=== PATIENT | female | born 1995 | race Caucasian/White ===

== ENCOUNTER 2023-09-16 15:38 | Emergency (ER) | payer BC, SELFPAY ==
--- OUTSIDE RECORDS SUMMARY | 2023-09-16 15:43 | XMS_ITS | Patient Health Record ---
Author Name Unknown Organization [facility] Address [address] [place] [address] Care Team Providers Care Inventory Analyst Name Role Phone Radha Shahid Unavailable [phone] ALLERGIES Allergen (clinical drug ingredient) Drug/Non Drug Allergy documented on EMR Reaction Allergy Type Onset Date Status sulfamethoxazole / trimethoprim Bactrim hives Drug Allergy Active azithromycin Azithromycin hives Drug Allergy A ctive RESULTS Component Value Reference Range Notes Urine Dip Reviewed date:03/17/2023 11:58:56 AM Interpretation: Performing Lab: Notes/Report: Appearance light yellow Color - Color Leukocytes + Negative - Large +++ Nitrates neg Negative - Positive Urobilinogen 0.2 Negative - 8 Protein neg Negative - 2000++++ PH 7.0 5.0 - 8.5 Blood neg Negative - Large +++ Specific [place] 1.010 1.000 - 1.030 [place] neg Negative - Large Bilirubin neg Negative - Large Glucose neg Negative - 2000+ Reviewed date:03/17/2023 11:58:56 AM Interpretation: Performing Lab: Notes/Report: Result negative Negative - Positive REASON FOR REFERRAL No Information SOCIAL HISTORY Tobacco Use: 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 Observation Description Date Details (start date - stop date) Never Smoker NA - NA Sex Assigned At :
[2023-09-16 15:50] VITALS: BP 123/78; PULSE 89; RESP 18; TEMP 36.9; O2SAT 100; BMI 33.5
[2023-09-16 16:05] LABS: UTC Strep Screen (Rapid) Negative (Negative)
--- NOTE | 2023-09-16 16:17 | EXP.UTC ---
Discharge Plan Disposition Patient Disposition: Home, Self-Care Condition: Good Prescriptions Prescriptions: New cephalexin [cephalexin] 500 mg tablet 500 mg PO BID 10 Days Qty: 20 0RF fluticasone propionate [fluticasone propionate] 50 mcg/actuation spray,suspension 1 spray intranasal DAILY Qty: 9.9 0RF Referrals Follow up/Referrals: Provider,Referral, MD [Primary Care Provider] - See instructions Activity Restrictions/Add. Instructions Additional Instructions/Restrictions: Start antibiotic patient to take as ordered for a full length of time even if you feel better. Sinus infections do not get better overnight. It may take 2-3 days to notice much improvement so be sure to use conservative measures as discussed for symptoms. Flonase 1 spray each nostril daily to help with nasal congestion, sinus and ear pressure/information Increase fluids Humidifier/vaporizer as needed Tylenol and ibuprofen as needed for fever or pain. If symptoms do not improve or get worse return or be seen in the ER Follow-up with primary care this week Clinical Impressions Clinical Impression: Sinusitis Qualifiers: Sinusitis location: maxillary Chronicity: acute Recurrence: non-recurrent Qualified Code(s): J01.00 - Acute maxillary sinusitis, unspecified Instructions Patient Instructions: DI for Sinusitis Discharge ED Provider: Daryl ([facility])Nitza [facility] General Stated complaint: sore throat, bilateral ear pain Mode of Arrival: Ambulatory Source of Information: Patient Limitations: No Limitations Time Seen by Provider: 09/16/23 16:17 Description of Symptoms (Recalled from Triage Doc. by RN): cough, sore throat, itchy throat, congestion, and bilateral ear pain. HEENT Symptoms (Recalled from RN notes): Yes Resp Symptoms (Recalled from RN notes): No Skin Symptoms (Recalled from RN notes): No MS Symptoms (Recalled from RN notes): No Functional Status (Recalled from RN notes): n/a History of Present Illness Provider Complaint: 27 yr old female presents for cough, sore throat, itchy throat, green nasal drainage, sinus tenderness,congestion, and bilateral ear pain. Related Data Previous Rx's Medication Instructions Recorded cephalexin 500 mg tablet 500 mg PO BID 10 days #20 tabs 09/16/23 fluticasone propionate 50 1 spray intranasal DAILY #9.9 mL 09/16/23 mcg/actuation nasal spray,suspension Allergies Allergy/AdvReac Type Severity Reaction Status Date / Time azithromycin Allergy Verified 09/16/23 15:59 sulfamethoxazole Allergy Verified 09/16/23 15:59 [From Bactrim] trimethoprim [From Bactrim] Allergy Verified 09/16/23 15:59 Worker's Comp Is this a Worker's Comp case?: No [facility] Disclaimer: The information contained in this section may have been updated after the patient was seen, as this information can be updated by other users. 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) Smoking Status: Smoker, status unknown alcohol intake: never current occupational status: employed Travel in the last 8 weeks: None ROS Obtained: Yes All systems reviewed & no additional complaints except as documented Constitutional Constitutional: Reports system reviewed and no additional complaints, except as documented and Reports as per HPI Eyes Eyes: Reports system reviewed and no additional complaints, except as documented ENT Ears, Nose, Mouth, and Throat: Reports system reviewed and no additional complaints, except as documented, Reports as per HPI, Reports otalgia, Reports nasal congestion, Reports nasal discharge, Reports sinus pain, Reports sinus pressure and Reports sore throat Cardiovascular Cardiovascular: Reports system reviewed and no additional complaints, except as documented Respiratory Respiratory: Reports system reviewed and no additional complaints, except as documented, Reports as per HPI and Reports cough Gastrointestinal Gastrointestingal: Reports system reviewe
[2023-09-16 16:30] VITALS: BP 124/86; PULSE 79; RESP 19; TEMP 36.8; O2SAT 99
== END 2023-09-16 16:31 | disposition home or self-care (01) ==
PROVIDERS: Emergency Provider Nurse Practitioner Family
DX: J01.00 Acute maxillary sinusitis, unspecified (principal); R07.0 Pain in throat; H92.03 Otalgia, bilateral; R05.9 Cough, unspecified; R09.81 Nasal congestion; F17.210 Nicotine dependence, cigarettes, uncomplicated
CPT/HCPCS: 87880; 99204; 99212; G0463

== ENCOUNTER 2024-01-11 20:27 | Emergency (ER) | payer BC, SELFPAY ==
[2024-01-11 20:27] VITALS: BP 119/83; PULSE 74; RESP 19; TEMP 36.4; O2SAT 99; BMI 28.1
--- NOTE | 2024-01-11 20:31 | ECG_ITS ---
APPROVED REPORT Exam: Resting ECG HR:63 bpm ECG Measurements Heart Rate 63 AXES MN 120 P 40 QRSd 87 QRS 79 QT 392 T 20 QTc 399 Conclusion SINUS RHYTHM NORMAL ECG UNCONFIRMED REPORT Electronically signed by : Raciel Leggett, 01/11/2024 23:38:47
--- NOTE | 2024-01-11 20:43 | XR_ITS ---
PROCEDURE INFORMATION: Exam: XR Chest Exam date and time: 01/11/2024 8:42 PM Age: 28 years old Clinical indication: Pain; Chest pressure; Additional info: Chest pain TECHNIQUE: Imaging protocol: Radiologic exam of the chest. Views: 2 views. COMPARISON: No relevant prior studies available. FINDINGS: Lungs: Unremarkable. No consolidation. Pleural spaces: Unremarkable. No pleural effusion. No pneumothorax. Heart/Mediastinum: Unremarkable. No cardiomegaly. Bones/joints: Unremarkable. IMPRESSION: No acute findings.
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
[2024-01-11] MEDS: ACETAMINOPHEN 325MG TAB 650 MG PO (21:00)
[2024-01-11 21:26] VITALS: BP 128/80; PULSE 76; RESP 20; TEMP 36.4; O2SAT 98
== END 2024-01-11 21:26 | disposition home or self-care (01) ==
PROVIDERS: Emergency Provider Student in an Organized Health Care Education/Training Program
DX: R07.89 Other chest pain (principal); R11.0 Nausea; M54.9 Dorsalgia, unspecified; R06.02 Shortness of breath; R05.9 Cough, unspecified
CPT/HCPCS: 71046; 93005; 99284

== ENCOUNTER 2024-03-07 09:55 | Outpatient (CLI) | payer BC, SELFPAY ==
--- NOTE | 2024-03-07 09:58 | CT_ITS ---
FINAL REPORT CLINICAL HISTORY: ABD PAIN, CONSTIPATION COMPARISON: None FINDINGS: CT OF THE ABDOMEN AND PELVIS WITH CONTRAST Axial CT images of the abdomen and pelvis were obtained after the administration of IV contrast. Coronal and sagittal reformatted images were also obtained and reviewed. This study was performed with techniques to keep radiation doses as low as reasonably achievable (ALARA). Individualized dose reduction techniques using automated exposure control or adjustment of mA and/or kV according to the patient's size were employed. Abdomen: The lung bases are clear. The heart is normal in size. The liver has an unremarkable appearance, without evidence of mass or biliary ductal dilatation. The gallbladder has been surgically resected. The spleen is unremarkable. No adrenal mass is present. The pancreas has an unremarkable appearance. There is a 1 cm left renal cyst identified. The aorta is normal in caliber. There is no free fluid or adenopathy. No mass or abnormal fluid collection is seen. Pelvis: The appendix is normal in appearance. There is a moderate amount of stool present throughout the colon. The urinary bladder is unremarkable. There is a small amount of pelvic free fluid, physiologic or reactive. There is no evidence of mass or adenopathy. There is no evidence of bowel obstruction. IMPRESSION: 1 cm left renal cyst. Moderate stool throughout the colon. Small amount of pelvic free fluid, physiologic or reactive. Reviewed, Interpreted and Dictated by Donell Whitt III, MD Transcribed by Savanah Suazo Authenticated and [facility]
[2024-03-07] MEDS: IOPAMIDOL-370 (76%);100ML BOTTLE 75 ML IV (10:54)
[2024-03-07] MEDS: SODIUM CHLORIDE 0.9% 10ML SYR (RAD ONLY) 10 ML IV (10:54)
== END 2024-03-07 23:59 | disposition home or self-care (01) ==
LOC: RAD 09:56
PROVIDERS: PCP Nurse Practitioner; Visit Provider Nurse Practitioner
DX: K59.00 Constipation, unspecified (principal); R10.9 Unspecified abdominal pain
CPT/HCPCS: 74177; Q9967

== ENCOUNTER 2024-06-17 07:18 | Outpatient (CLI) | payer BC, SELFPAY ==
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
[2024-06-17] MEDS: SODIUM CHLORIDE 0.9% 10ML SYR (RAD ONLY) 10 ML IV (08:03)
[2024-06-17] MEDS: GADOTERIDOL INJ 20ML SYRINGE 17 ML IV (08:03)
== END 2024-06-17 23:59 | disposition home or self-care (01) ==
LOC: RAD 07:19
PROVIDERS: PCP Nurse Practitioner; Visit Provider Nurse Practitioner
DX: G43.511 Persistent migraine aura without cerebral infarction, intractable, with status migrainosus (principal)
CPT/HCPCS: 70553; A9576

== ENCOUNTER 2025-05-26 13:27 | Outpatient (CLI) | payer BC, MEDICAID, SELFPAY ==
--- OUTSIDE RECORDS SUMMARY | 2025-05-29 13:38 | XMS_ITS | Data Portability ---
Author Organization [facility] Caryl & TODD Wolf ADMIN Address [address] [place] [id number] Care Team Providers Care Mainframe Software Developer Name Role Phone BRIAN BIA Fertilizer Loader ALESSIA DO Primary Care Provider [phone] Assessment No assessment recorded. Plan of Treatment Reminders Order Date Submit Date Provider Last Modified By Organization Details Last Modified Time Details Appointments FOLLOW UP 15 2024 09:00A Sang Delvalle MD Not available Not available Not available Lab CBC w/ diff 2023 024 [email or web address] Not available 11/30/2023 08:19:19 CMP, serum or plasma 2023 024 SHARI Not available 11/23/2023 14:19:12 ldh, serum or plasma 2023 024 SHARI Not available 11/23/2023 14:02:29 platelet Ab, serum 2023 024 [email or web address] Not available 11/30/2023 08:19:20 vitamin D, 25-hydrox y, total, serum 2023 024 [email or web address] Not available 11/30/2023 08:19:20 vitamin B12 + folate, serum or blood 2023 024 [email or web address] Not available 11/30/2023 08:19:20 TSH + free T4, serum 2023 024 [email or web address] Not available 11/30/2023 08:19:20 mma (methylma lonic acid), serum 2023 024 [email or web address] Not available 11/30/2023 08:19:20 iron + TIBC + ferritin, serum 2023 024 [email or web address] Not available 11/30/2023 08:19:20 iron saturatio n, serum 2023 024 [email or web address] Not available 11/30/2023 08:19:20 Referral None recorded. Procedures None recorded. Surgeries None recorded. Imaging MRI, brain, w/o contrast 2023 [facility] (Centralized Scheduling), [address], [place], [address], 05/17/2024 15:10:40 Medication Orders Ubrelvy 100 mg tablet 2023 [facility], [address] [place] [address], [address], [place], [address], 05/17/2024 15:11:34 Patient TargetsNo targets recorded. Patient InstructionsNo instructions recorded. Reason for Referral None Reported. Results Created Date Observation Date Name Description Value Unit Range Abnormal Flag Note LastModifiedBy Organization Detail LastModifiedTime 11/23/19 24 11/23/2023 CBC AUTO W DIFF WBC 4.5 K/uL 4.0-10 .5 Not Available [facility] ([facility]) [address], [place], [address], 11/23/2023 13:15:41 11/23/19 24 11/23/2023 CBC AUTO W DIFF RBC 4.7 M/mm3 4.2-6. 4 Not Available [facility] ([facility]) [address], [place], [address], 11/23/2023 13:15:41 11/23/19 24 11/23/2023 CBC AUTO W DIFF HGB 13.7 gm/dL 12.5-1 6.0 Not Available [facility] ([facility]) [address], [place], [address], 11/23/2023 13:15:41 11/23/19 24 11/23/2023 CBC AUTO W DIFF HCT 41.3 % 37.0-4 7.0 Not Available [facility] ([facility]) [address] , [place], [address], 11/23/2023 13:15:41 11/23/19 24 11/23/2023 CBC AUTO W DIFF MCV 88.4 fL 78-100 Not Available [facility] ([facility]) [address] , [place], [address], 11/23/2023 13:15:41 11/23/19 24 11/23/2023 CBC AUTO W DIFF MCH 29.3 pg 27-31 Not Available [facility] ([facility]) [address], [place], [address], 11/23/2023 13:15:41 11/23/19 24 11/23/2023 CBC AUTO W DIFF MCHC 33.2 g/dL 32-36 Not Available [facility] ([facility]) [address] , [place], [address], 11/23/2023 13:15:41 11/23/19 24 11/23/2023 CBC AUTO W DIFF RDW 11.9 % 11.5-1 4.0 Not Available [facility] ([facility]) [address] , [place], [address], 11/23/2023 13:15:41 11/23/19 24 11/23/2023 CBC AUTO W DIFF platelet count 230 K/uL 150-45 0 Not Available [facility] ([facility]) [address] [place], [address], 11/23/2023 13:15:41 11/23/19 24 11/23/2023 CBC AUTO W DIFF MPV 11.4 fL 6-9.5 high Not Available [facility] ([facility]) [address], [place], [address], 11/23/2023 13:15:41 11/23/19 24 11/23/2023 CBC AUTO W DIFF neutrophil% 41.9 % 43-65 low Not Available [facility] ([facility]) [address], [place], [address], 11/23/2023 13:15:41 11/23/19 24 11/23/2023 CBC AUTO W DIFF lymphocyte% 47.1 % 20.5-4 5.5 high Not Available [facility] ([facility]) [address], [place], [address], 11/23/2023 13:15:41 11/23/19 24 11/23/2023 CBC AUTO W DIFF monocyte% 9.5 % 5.5-11 .7 Not Available [facility] ([facility]) [address], [place], [address], 11/23/2023 13:15:41 11/23/19 24 11/23/2023 CBC AUTO W DIFF eosinophil% 1.1 % 0.9-2. 9 Not Available [facility] ([facility]) [address], [place], [address], 11/23/2023 13:15:41 11/23/19 24 11/23/2023 CBC AUTO W DIFF basophil% 0.4 % 0.2-1. 0 Not Available [facility] ([facility]) [address], [place], [address], 11/23/2023 13:15:41 11/23/19 24 11/23/2023 CBC AUTO W DIFF immature granulocytes % 0.0 % 0.0-0. 8 Not Available [facility] ([facility]) [address], [place], [address], 11/23/2023 13:15:41 11/23/19 24 11/23/2023 CBC AUTO W DIFF nucleated red blood cells % 0.0 % Not Available [facility] ([facility]) [address], [place], [address], 11/23/2023 13:15:41 11/23/19 24 11/23/2023 CBC AUTO W DIFF neutrophil# 1.9 K/uL 2.2-4. 8 low Not Available [facility] ([facility]) [address], [place], [address], 11/23/2023 13:15:41 11/23/19 24 11/23/2023 CBC AUTO W DIFF lymphocyte# 2.1 cell/ mcL 1.3-2. 9 Not Available [facility] ([facility]) [address], [place], [address], 11/23/2023 13:15:41 11/23/19 24 11/23/2023 CBC AUTO W DIFF monocyte# 0.4 cell/ mcL 0.3-0. 8 Not Available [facility] ([facility]) [address], [place], [address], 11/23/2023 13:15:41 11/23/19 24 11/23/2023 CBC AUTO W DIFF eosinophil# 0.1 cell/ mcL 0-0.2 Not Available [facility] ([facility]) [address], [place], [address], 11/23/2023 13:15:41 11/23/19 24 11/23/2023 CBC AUTO W DIFF basophil# 0.0 cell/ mcL 0.0-1. 0 Not Available [facility] ([facility]) [address], [place], [address], 11/23/2023 13:15:41 11/23/19 24 11/23/2023 CBC AUTO W DIFF immature gramulocytes # 0.00 K/uL Not Available [facility] ([facility]) [address], [place], [address], 11/23/2023 13:15:41 11/23/19 24 11/23/2023 CBC AUTO W DIFF nucleated red blood cells # 0.00 K/uL Not Available [facility] ([facility]) [address], [place], [address], 11/23/2023 13:15:41 11/23/19 24 11/23/2023 CBC AUTO W DIFF manual differential NO Not Available [facility] ([facility]) [address], [place], [address], 11/23/2023 13:15:41 11/23/19 24 11/23/2023 VITAM IN B12 vitamin B12 380 pg/mL 193-98 6 *Note : Refer irasema Her. New Test Metho d in use. Not Available [facility] ([facility]) [address] , [place], [address], 11/23/2023 13:51:32 11/23/19 24 11/23/2023 VITAM IN B12 folate (folic acid), serum 13.2 NG/mL 8.6-58 .9 *Note : Refer irasema Her. New Test Metho d in use. Not Available [facility] ([facility]) [address], [place], [address], 11/23/2023 13:51:32 11/23/19 24 11/23/2023 VITAM IN D, 25-HY DROXY vitamin D, 25-hydroxy 25.9 NG/mL 30.0-1 00.0 low Not Available [facility] ([facility]) [address] , [place], [address], 11/23/2023 14:02:28 11/23/19 24 11/23/2023 LDH (LD) LDH 165 U/L 0-190 Not Available [facility] ([facility]) [address] , [place], [address], 11/23/2023 14:02:29 11/23/19 24 11/23/2023 THYRO ID STIMU LATIN G HORMO NE thyroid stim hormone 1.92 mIU/L 0.36-3 .74 Not Available [facility] ([facility]) [address], [place], [address], 11/23/2023 14:02:31 11/23/19 24 11/23/2023 T4 FREE T4 free 0.85 NG/dL 0.76-1 .46 Not Available [facility] ([facility]) [address], [place], [address], 11/23/2023 14:03:38 11/23/19 24 11/23/2023 DIOGENES TIN ferritin, serum 46 NG/mL 3-244 Not Available [facility] ([facility]) [address], [place], [address], 11/23/2023 14:03:39 11/23/19 24 11/23/2023 COMP METAB OLIC PANEL sodium 134 mmol/ L 136-14 5 low Not Available [facility] ([facility]) [address], [place], [address], 11/23/2023 14:19:12 11/23/19 24 11/23/2023 COMP METAB OLIC PANEL potassium 3.8 mmol/ L 3.6-5. 0 Not Available [facility] ([facility]) [address] [place], [address], 11/23/2023 14:19:12 11/23/19 24 11/23/2023 COMP METAB OLIC PANEL chloride 99 mmol/ L 98-107 Not Available [facility] ([facility]) [address] [place], [address], 11/23/2023 14:19:12 11/23/19 24 11/23/2023 COMP METAB OLIC PANEL carbon dioxide 25.1 mmol/ L 21.0-3 2.0 Not Available [facility] ([facility]) [address], [place], [address], 11/23/2023 14:19:12 11/23/19 24 11/23/2023 COMP METAB OLIC PANEL anion gap 10.0 Not Available [facility] ([facility]) [address], [place], [address], 11/23/2023 14:19:12 11/23/19 24 11/23/2023 COMP METAB OLIC PANEL glucose 91 mg/dL 70-120 Not Available [facility] ([facility]) [address], [place], [address], 11/23/2023 14:19:12 11/23/19 24 11/23/2023 COMP METAB OLIC PANEL BUN 9 mg/dL 7-18 Not Available [facility] ([facility]) [address], [place], [address], 11/23/2023 14:19:12 11/23/19 24 11/23/2023 COMP METAB OLIC PANEL creatinine 0.7 mg/dL 0.6-1. 3 Not Available [facility] ([facility]) [address], [place], [address], 11/23/2023 14:19:12 11/23/19 24 11/23/2023 COMP METAB OLIC PANEL glomerular filtration rate >60 mlper min 60- Not Available [facility] ([facility]) [address], [place], [address], 11/23/2023 14:19:12 11/23/19 24 11/23/2023 COMP METAB OLIC PANEL total protein 8.0 g/dL 6.4-8. 2 Not Available [facility] ([facility]) [address], [place], [address], 11/23/2023 14:19:12 11/23/19 24 11/23/2023 COMP METAB OLIC PANEL albumin 4.1 g/dL 3.4-5. 0 Not Available [facility] ([facility]) [address] , [place], [address], 11/23/2023 14:19:12 11/23/19 24 11/23/2023 COMP METAB OLIC PANEL globulin 3.9 Not Available [facility] ([facility]) [address] , [place], [address], 11/23/2023 14:19:12 11/23/19 24 11/23/2023 COMP METAB OLIC PANEL alb/glob ratio 1.1 0.7-2 Not Available [facility] ([facility]) [address] , [place], [address], 11/23/2023 14:19:12 11/23/19 24 11/23/2023 COMP METAB OLIC PANEL calcium 9.2 mg/dL 8.5-10 .5 Not Available [facility] ([facility]) [address] , [place], [address], 11/23/2023 14:19:12 11/23/19 24 11/23/2023 COMP METAB OLIC PANEL bilirubin total 0.3 mg/dL 0.10-1 .00 Not Available [facility] ([facility]) [address] , [place], [address], 11/23/2023 14:19:12 11/23/19 24 11/23/2023 COMP METAB OLIC PANEL AST (SGOT) 17 U/L 0-37 Not Available [facility] ([facility]) [address] , [place], [address], 11/23/2023 14:19:12 11/23/19 24 11/23/2023 COMP METAB OLIC PANEL ALT (SGPT) 21 U/L 0-65 Not Available [facility] ([facility]) [address] , [place], [address], 11/23/2023 14:19:12 11/23/19 24 11/23/2023 COMP METAB OLIC PANEL alk phosphatase 104 U/L 46-116 Not Available [facility] ([facility]) [address], [place], [address], 11/23/2023 14:19:12 11/23/19 24 11/23/2023 IRON STUDY (IRON /TIBC /%SAT ) iron 94 mcg/m L 40-180 Not Available [facility] ([facility]) [address], [place], [address], 11/23/2023 14:24:44 11/23/19 24 11/23/2023 IRON STUDY (IRON /TIBC /%SAT ) TIBC 330 mcg/d L 250-45 0 Not Available [facility] ([facility]) [address], [place], [address], 11/23/2023 14:24:44 11/23/19 24 11/23/2023 IRON STUDY (IRON /TIBC /%SAT ) %sat 28 15-55 Not Available [facility] ([facility]) [address], [place], [address], 11/23/2023 14:24:44 11/23/19 24 11/27/2023 METHY LMALO TIAN ACID QUANT methylmaloni c acid, serum 169 nmol/ L 0-378 Speci men Comme nt: Test( s) 29332 7-Met hylma lonic Acid, Serum Speci men Comme nt: was devel oped and its perfo rmanc e diane cte risti cs Speci men Comme nt: deter mined by [facility]. It has not been candelario ared or appro shell Speci men Comme nt: by the Food and Drug Admin istra tion. Perfo rmed at: [facility] [place] [address] , [place] [address] Lab Direc tor: Ana georges MD, Phone : [phone] Not Available [facility] ([facility]) [address], [place], [address], 11/27/2023 17:09:42 11/23/19 24 11/30/2023 PLATE LET ANTIB NELSON, SERUM hla class 1 Ab TNP Speci men quant ity insuf ficie nt for verif icati on by repea t chaim sis. Conta ct: Huma Bashir nd Not Available [facility] ([facility]) [address], [place], [address], 11/30/2023 13:10:21 11/23/19 24 11/30/2023 PLATE LET ANTIB NELSON, SERUM iib / iiia TNP Test not perfo rmed Not Available [facility] ([facility]) [address], [place], [address], 11/30/2023 13:10:21 11/23/19 24 11/30/2023 PLATE LET ANTIB NELSON, SERUM ib / IX TNP Test not perfo rmed Not Available [facility] ([facility]) [address], [place], [address], 11/30/2023 13:10:21 11/23/19 24 11/30/2023 PLATE LET ANTIB NELSON, SERUM ia / iia TNP Test not perfo rmed Not Available [facility] ([facility]) [address], [place], [address], 11/30/2023 13:10:21 11/23/19 24 11/30/2023 PLATE LET ANTIB NELSON, SERUM glycoprotein IV antibody TNP Test not perfo rmed [facility] [place] [address] [place] [address] Lab Direc tor: Ana georges MD, Phone : [phone] Not Available [facility] ([facility]) [address], [place], [address], 11/30/2023 13:10:21 Result Notes None recorded. Problems Name Problem SNOMED Code Status Onset Date Resolution Date Notes Provider Name and Address Organization Details Recorded Time Migraine 22449124 Active 2023 Elaina dominique [facility] 4 07:44:56 Chronic intractabl e migraine without aura 7596993102289 05 Active 2023 Millicent Morales, DO [address], [place], [address] , [facility] 4 15:05:04 Problem Notes None recorded. Procedures Surgical History Date Name Laterality Status Provider Name and Address Organization Details Recorded Time 11/23/19 24 Venipuncture completed Elicia Espinoza CH[facility]gett NT [facility] 11/23/2023 10:34:25 11/02/19 24 destruction of lesion of uterus completed Elaina Moalfonso [facility] 05/17/2024 14:35:20 10/02/20 23 Date of Last Pap Smear completed Shabana BROOKS [facility] 11/23/2023 10:00:55 11/02/19 00 Tonsillectomy/Adeno idectomy completed Shabana [facility]gett [facility] 11/23/2023 10:01:08 Cholecystectomy completed Elaina Padgett [facility] 05/17/2024 14:34:52 Imaging Results None recorded. Procedure Notes None recorded. Medical Equipment None Reported. Allergies Allergen ID Allergen Name Allergen Category Reaction Reaction Severity Criticality Documentation Date Start Date Code Code System Note Provider Name and Address Organization Details Recorded Time 809273 azithromy donnie medicatio n Not available Not available Not available 05/17/2024 43413 RxNorm Elaina Moalfonso dominique [facility] - [facility] 4 07:43:22 285079 codeine medicatio n abdominal pain chest pain vomiting severe severe severe Not available 05/17/2024 2670 RxNorm Elaina dominique [facility] - [facility] 4 14:32:06 298908 Bactrim medicatio n rash vomiting severe severe Not available 05/17/2024 34953 9 RxNorm [facility] [place] [facility] 4 14:32:06 Medications Name Sig Start Date Stop Date Status Note LastModified by Organization Details LastModified Time quetiapine 25 mg tablet TAKE 1 TABLET BY MOUTH DAILY AT BEDTIME 05/17 completed Not Available Not Available Not Available cyclobenzap rine 10 mg tablet TAKE 1 TABLET BY MOUTH TWICE DAILY 05/17 completed Not Available Not Available Not Available amoxicillin 500 mg capsule TAKE 1 CAPSULE BY MOUTH THREE TIMES DAILY FOR 7 DAYS UNTIL GONE 05/17 completed Not Available Not Available Not Available venlafaxine ER 75 mg capsule,ext ended release 24 hr TAKE 1 CAPSULE BY MOUTH DAILY WITH FOOD 05/17 completed Not Available Not Available Not Available paroxetine 10 mg tablet TAKE 1 TABLET BY MOUTH DAILY IN THE MORNING active Not Available Not Available No t Available trazodone 50 mg tablet TAKE 1 TABLET BY MOUTH AT BEDTIME 05/17 completed Not Available Not Available Not Available ibuprofen 800 mg tablet TAKE 1 TABLET BY MOUTH EVERY 8 HOURS NEEDED FOR ABDOMINAL PAIN 05/17 completed Not Available Not Available Not Available hydrocodone 5 mg-acetamin ophen 325 mg tablet TAKE 1 TABLET BY MOUTH EVERY 4 HOURS NEEDED FOR PAIN 05/17 completed Not Available Not Available Not Available meloxicam 15 mg tablet TAKE 1 TABLET BY MOUTH ONCE DAILY 05/17 completed Not Available Not Available Not Available ondansetron HCl 4 mg tablet TAKE 1 TABLET BY MOUTH EVERY 6 HOURS FOR 10 DAYS NEEDED 05/17 completed Not Available Not Available Not Available phentermine 37.5 mg tablet active Not Available Not Available Not Available acetaminoph en 300 mg-codeine 30 mg tablet TAKE 1 TABLET BY MOUTH EVERY 6 HOURS FOR 7 DAYS NEEDED 05/17 completed Not Available Not Available Not Available aspirin 81 mg tablet,ankita yed release Take 1 tablet every day by oral route. 05/17 completed Not Available Not Available Not Available oxycodone-a cetaminophe n 5 mg-325 mg tablet TAKE 1 TABLET BY MOUTH EVERY 6 HOURS NEEDED FOR ABDOMINAL PAIN DISCOMFOR T 05/17 completed Not Available Not Available Not Available amoxicillin 875 mg tablet TAKE 1 TABLET BY MOUTH TWICE DAILY FOR 7 DAYS 05/17 completed Not Available Not Available Not Available methocarbam ol 750 mg tablet TAKE 1 TABLET BY MOUTH EVERY 6 HOURS 05/17 completed Not Available Not Available Not Available temazepam 15 mg capsule TAKE 1 CAPSULE BY MOUTH DAILY AT BEDTIME NEEDED 05/17 completed Not Available Not Available Not Available lidocaine HCl 4 % (40 mg/mL) mucosal solution SWISH AND SPIT 5ML THREE TIMES DAILY FOR 7 DAYS 05/17 completed Not Available Not Available Not Available hydrocodone 7.5 mg-acetamin ophen 325 mg tablet TAKE 1 TABLET BY MOUTH EVERY 6 HOURS FOR 7 DAYS NEEDED 05/17 completed Not Available Not Available Not Available cephalexin 500 mg capsule TAKE 1 CAPSULE BY MOUTH TWICE DAILY FOR 10 DAYS 11/16 completed Not Available Not Available Not Available dexamethaso ne 0.75 mg tablet 05/17 completed Not Available Not Available Not Available hydrocortis one 2.5 % topical cream APPLY TOPICALLY TO THE AFFECTED AREA TWICE DAILY FOR 5 DAYS 11/16 completed Not Available Not Available Not Available ergocalcife rol (vitamin D2) 1,250 mcg (50,000 unit) capsule TAKE 1 CAPSULE BY MOUTH EVERY WEEK DIRECTED 05/17 completed Not Available Not Available Not Available ibuprofen 600 mg tablet 05/17 completed Not Available Not Available Not Available scopolamine 1 mg over 3 days transdermal patch 05/17 completed Not Available Not Available Not Available methylpredn isolone 4 mg tablets in a dose pack FOLLOW PACKAGE DIRECTION S 11/16 completed Not Available Not Available Not Available ondansetron 4 mg disintegrat ing tablet TAKE 2 TABS BY MOUTH EVERY 6 HOURS NEEDED FOR NAUSEA. 11/16 completed Not Available Not Available Not Available cefdinir 300 mg capsule TAKE 1 CAPSULE BY MOUTH TWICE DAILY FOR 10 DAYS 05/17 completed Not Available Not Available Not Available fluticasone propionate 50 mcg/actuati on nasal spray,suspe nsion USE 1 SPRAY(S) IN EACH NOSTRIL ONCE DAILY 05/17 completed Not Available Not Available Not Available bupropion HCl XL 300 mg 24 hr tablet, extended release TAKE 1 TABLET BY MOUTH ONCE DAILY 05/17 completed Not Available Not Available Not Available nitrofurant oin monohydrate /macrocryst als 100 mg capsule TAKE 1 CAPSULE BY MOUTH EVERY 12 HOURS WITH FOOD FOR 7 DAYS 05/17 completed Not Available Not Available Not Available chlorhexidi ne gluconate 0.12 % mouthwash SWISH 1/2 OUNCE BY MOUTH TWICE A DAY FOR 30 SECONDS THEN SPIT 05/17 completed Not Available Not Available Not Available quetiapine ER 150 mg tablet,exte nded release 24 hr TAKE 1 TABLET BY MOUTH DAILY IN THE EVENING 05/17 completed Not Available Not Available Not Available Ubrelvy 100 mg tablet 1 tablet at onset of a headache. May repeat the dose in 2 hours if needed. no more than 2 doses in 24 hours active Not Available Not Available No t Available Qulipta 60 mg tablet Take 1 tablet every day by oral route. active Not Available Not Available No t Available Vitals Date Recorded Body height Body mass index (BMI) Body weight Body temperature Heart rate Oxygen saturation Oxygen saturation in Arterial blood by Pulse oximetry Systolic And Diastolic Provider Name and Address Organization Details Last Updated DateTime 170.18 cm 32.8 kg/m2 18872.2 4 g 98.7 [degF] 72 /min 99 % 99 % 120/72 mm[Hg] Shabana Neal [facility] 10:03:59 Date Recorded Body height Body mass index (BMI) Body weight Heart rate Systolic And Diastolic Provider Name and Address Organization Details Last Updated DateTime 05/17/2024 170.18 cm 31.2 kg/m2 94298.06 g 71 /min 109/73 mm[Hg] Elaina Lulú GOLDEN [facility] 05/17/2024 14:33:49 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 Question Answer Notes LastModified by Organizat ion Details LastModified Time Tobacco Smoking Status Never Smoker Shabana Neal [facility] dominique [facility] 11/23/2023 10:01:06 Do You Have An Advance Directive? No [email or web address] Information not available 11/23/2023 Are You Blind Or Do You Have Difficulty Seeing? Yes Information not available 11/23/2023 What Is Your Level Of Caffeine Consumption? None Information not available 05/17/2024 What Is Your Relationship Status? Lives In A House With And Kids Information not available 05/17/2024 Are You Sexually Active? Yes Information not available 05/17/2024 Are You Passively Exposed To Smoke? No [email or web address] Information not available 11/23/2023 How Much Tobacco Do You Smoke? No [email or web address] Information not available 11/23/2023 Are You Currently In School? No Some College Information not available 05/17/2024 Sex: Unknown Functional Status Question Answer Note LastModified by Organizat ion Details LastModified Time Do you use any illicit or recreational drugs? No [email or web address] Information not available 11/23/2023 Are you currently employed? Yes Information not available 05/17/2024 What is your occupation? [employer] Information not available 05/17/2024 What is your exercise level? Moderate [email or web address] Information not available 11/23/2023 Mental Status Question Answer Note LastModified by Organization D etails LastModified Time Do you feel stressed (tense, restless, nervous, or anxious, or unable to sleep at night)? [id number] [email or web address] Information not available 11/23/2023 Family History Relationship Description Onset Age of this Age Resolved Age Notes LastModified by Organization Details LastModified Time Father No current problems or disability ldalla Not available 05/17 14:33:24 Mother No current problems or disability ldalla Not available 05/17 14:33:24 Medical History Condition Response Other Y Depression Y Anxiety Disorder Y Vision or Eye Problems Y Reflux/GERD Y Gynecological History Statement/Question Response Abnormal Pap N Flow Heavy Sexually Active? Y Menses Monthly N Duration of Flow (days) 8 Date of Last Pap Smear 10/02/2023 Current Control Method None Obstetrics History GPAL:G 0 P 0 0 0 0 Immunizations Vaccine Type Date Status Note Provider Nam e and Address Organization Details Recorded Time MMR 9 completed [facility] [place] [facility] 05/17/2024 07:43:07 MMR 6 completed [facility] 05/17/2024 07:43:07 COVID-19 vaccine, vector-nr, rS-Ad26, PF, 0.5 mL 1 completed Elaina Chelya null, [place] - [facility] [place] [facility] 05/17/2024 07:43:07 Tdap 6 completed Elaina Dalla null, [place] - [facility] [place] [facility] 05/17/2024 07:43:07 Tdap 1 completed Elaina Dalla null[place] [facility] [place] [facility] 05/17/2024 07:43:07 varicella 9 completed Elaina Dalla null[place] - [facility] [place] [facility] 05/17/2024 07:43:07 Hep B, unspecified formulation 6 completed Elaina Dalla null[place] - [facility] [place] [facility] 05/17/2024 07:43:07 OPV, trivalent 9 completed Elaina Dalla null[place] - [facility] [place] [facility] 05/17/2024 07:43:07 TST-PPD intradermal 8 completed Elaina Dalla null[place] - [facility] [place] [facility] 05/17/2024 07:43:07 DTP-Hib 6 completed Elaina D[place] - [facility] [place] [facility] 05/17/2024 07:43:07 HPV, quadrivalent 9 completed Elaina Dalla null[place] - [facility] [place] [facility] 05/17/2024 07:43:07 DTaP, unspecified formulation 9 completed Elaina Dalla null[place] - 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 Red blood count 4.56. Hemoglobin 13.5 and hematocrit 39.8. MCV 87.1. Mean platelet volume 10.4. Platelet count 488544. Normal cell differenti al. Labs on May 23, 2020 with platelet count 60219. Normal cell differenti al. Hemoglobin 14.3. At the time of labs patient was on Promacta 50 mg 1 tablet p.o. daily. Patient was also on 10 mg of prednisone . Labs on September 09, 2023 with white blood count 4.58. Red blood count 4.45. Hemoglobin 13.1 and hematocrit 39.5. MCV 89. Platelet count 613210. Neutrophil s at 38%. Lymphocyte s at 52%. Absolute lymphocyte count at 2.35. Patient is currently not on Promacta or steroid therapy. Menorrhagia [id number] N9 2.0 Patient recently seen by OBGYN on October 29, 2023. Patient was being evaluated for menorrhagi a with regular cycle. Patient had endometria l biopsy performed on October 29, 2023. Biopsy demonstrat ing benign secretory endometriu m. No evidence of hyperplasi a or carcinoma. Previous cervical cancer screening on Pap smear performed on September 09, 2023 with atypical squamous cells of undetermin ed significan ce. ASCUS. Patient is due for uterine ablation in November 2023. Fatigue [id number] R53.83 Increase in fatigue. Will follow up additional labs. Mild increase in bruising. [id number] DO MINERVA Morejon [facility] [address] [place] [address] 05/17/2024 14:24:35 05/17/2024 15:15:12 Chronic intractable migraine without aura [id number] G43.711 Gradually increasing migraines with severe disability . She is on qulipta and does feel this has been of some benefits. She should continue this medication as a preventati ve.She still has at least 1 bad headache a week but has no abortive to use. Will give her a trial of ubrelvy. She is educated on how to use this medication .She apparently has some abnormalit y on a recent eye exam but I don't have any useful informatio n to know if this is pertinent or not to her migraines. She has not had any prior neuroimagi ng. Will order MRI brain since her headaches have been getting worse in the last year. Health Concerns Section Related Observation LastModified by Organization Detai ls LastModified Time None Recorded Concern Status LastModified by Organization Details LastModified Time None Recorded Advance Directives Directive N: Payers Insurance Date Sequence Insurance Name Policy Number Policy Miller Covered Member ID Miller Member ID Guarantor Name 05/17/2024 1 [place] [id number] Silke Luevano [id number] Silke Luevano 05/20/2024 2 [place] [id number] Silke Lopez [id number] Silke Luevano OBGyn Episode No OBEpisode recorded.
== END 2025-05-26 23:59 ==
LOC: LAB.DROPOF 05-29 13:28
PROVIDERS: PCP Nurse Practitioner; Visit Provider Student in an Organized Health Care Education/Training Program
DX: R11.0 Nausea (principal); R10.9 Unspecified abdominal pain
CPT/HCPCS: 87086